=== PATIENT | female | born 1955 | race Caucasian/White ===

== ENCOUNTER 2018-04-22 20:52 | Emergency (ER) | payer BC ==
[~2018-04-22] VITALS: Ht 172.7 cm; Wt 73.9 kg
[2018-04-22] MEDS ORDERED: PROTONIX20 MG (21:43)
[2018-04-22] MEDS ORDERED: MULTI COMPLETE1 EACH (21:44)
== END 2018-04-23 03:14 | disposition home or self-care (01) ==
LOC: ER 20:52
DX: E86.0 Dehydration (principal); R53.1 Weakness; T67.5XXA Heat exhaustion, unspecified, initial encounter; X30.XXXA Exposure to excessive natural heat, initial encounter; Y93.89 Activity, other specified; Y92.89 Other specified places as the place of occurrence of the external cause; Y99.8 Other external cause status